=== PATIENT | female | born 1960 | race Caucasian/White ===

== ENCOUNTER → 2016-08-28 | Day surgery (SDC) | payer MEDICARE ==
[~2016-08-28] MED LIST: ACETAMINOPHEN650 M2; ALBUTEROL17 GM INH; ALLEGRA ALLERG180 MG PO; ALLEGRA180 MG PO; BUTRANS PATCH TOP; CAMBIA50 MG PO; CHOLEST OFF PL450 MG PO; CYMBALTA PO; CYMBALTA20 MG PO; DARVOCET-N 1001 TAB; DEPAKOTE PO; DEXILANT30 MG PO; EVOXAC30 MG PO; FLONASE16 GM; GLUCOSAMINE & C1 CAP PO; INDOCIN SR75 MG PO; LAMICTAL PO; LEXAPRO20 MG PO; METHOTREXATE2.5 MG PO; MOBIC PO; MUCUS RELIEF600 MG PO; MULTI VITAMIN1 EACH PO; MULTIVITAMIN1 UDCAP; NABUMETONE PO; NEURONTIN600 MG; NEURONTIN600 MG PO; NORCO 10-325 TA1 TAB PO; NUCYNTA100 MG; PERCOCET 10/31 UDTA1 PO; PERCOCET 51 UDTAB 5/; PHENERGAN25 M1 PO; PLAQUENIL200 MG PO; PREMPRO 0.1 TAB 0.62 PO; PREMPRO 0.625-21 TAB PO; PRILOSEC20 M1; PRILOSEC20 M1 PO; RELAFEN500 MG PO; RELPAX40 MG PO; RESTASIS32 EA OU; SINGULAIR PO; STOOL SOFTENER100 M1 PO; THERA TEARS28 EA OU; TUMS300 MG( 75 PO; TUMS500 MG; VITAMIN B12-FO1 EACH PO; VITAMIN C500 M5; VITAMIN D35000 UNI1 PO; WELLBUTRIN SR150 MG PO; ZANAFLEX4 M1 PO; ZOMIG5 MG PO; ZONEGRAN100 MG PO; [UNRECOGNIZED DRUG - OTHER]; [UNRECOGNIZED DRUG - OTHER]
--- NOTE | ~2016-08-28 | OR ---
Unit #: [id number] #: [id number] Patient: CRISTELA BARAJAS [id number] [address] [place], [place] [address] [id number] MR#: [id number] NAME: CRISTELA BARAJAS. ROOM: Date of Procedure: 08/28/2016 Admission Date: 08/28/2016 Surgeon: Gabriel Dyer M.D. : 1960 Attending Physician: Gabriel Dyer M.D. Primary Care Physician: Maia Roche OPERATIVE REPORT PREOPERATIVE DIAGNOSES Back pain, radiculopathy, spondylolisthesis, degenerative disk disease. POSTOPERATIVE DIAGNOSES Back pain, radiculopathy, spondylolisthesis, degenerative disk disease. PROCEDURE PERFORMED Lumbar epidural steroid injection with intravenous sedation and fluoroscopic guidance for needle localization. INDICATIONS FOR PROCEDURE The patient is a 56-year-old female with return of back and right greater than left lower extremity pain due to previously mentioned nonsurgical diagnosis. She was last treated with epidural steroids done singly in 05/2015 and did very well for over a year. Based on good response, pathology, and symptomatology, we are going to proceed with a repeat injection today. DESCRIPTION OF PROCEDURE The patient was placed in a seated position. Standard monitors were applied. 2 mg of Versed were given for sedation and anxiolysis, which were adequate. Vital signs remained stable. Sterile prep and drape then of the lumbar area was performed. The skin then at the L4 level was localized with 1% lidocaine. An 18-gauge GoodBellytead needle was then advanced via loss of resistance technique and fluoroscopic guidance in toward the epidural space. After confirming proper positioning with fluoroscopy and radiographic contrast, 80 mg of Depo-Medrol and 4 mL of 0.125% bupivacaine were deposited. The patient tolerated the procedure otherwise well and was discharged to the recovery room in stable condition. Dictated by... Gabriel Dyer M.D. LHP/modl TD: 08/28/2016 22:26 JOB #: [id number] Unit #: [id number] #: [id number] Patient: CRISTELA BARAJAS OPERATIVE REPORT Page 1 of 1 X Gabriel Dyer MD X PROCEDURE OPERATIVE NOTE
== END | disposition home or self-care (01) ==
LOC: CCSC 10:29
DX: M51.17 Intervertebral disc disorders with radiculopathy, lumbosacral region (principal); M43.16 Spondylolisthesis, lumbar region; K21.9 Gastro-esophageal reflux disease without esophagitis; J45.909 Unspecified asthma, uncomplicated; M35.00 Sjogren syndrome, unspecified
CPT/HCPCS: J1040; J2250